=== PATIENT | female | born 1930 | race Caucasian/White ===

== ENCOUNTER 2016-03-21 13:49 | Outpatient (CLI) | payer MEDICARE ==
[2013-01-14 15:17] VITALS: BP 174/76
== END 2016-03-21 14:00 ==
LOC: NEPHRO 13:49
PROVIDERS: ATTEND Internal Medicine Nephrology
DX: E11.22 Type 2 diabetes mellitus with diabetic chronic kidney disease (principal); I50.9 Heart failure, unspecified; I48.91 Unspecified atrial fibrillation
CPT/HCPCS: G0463